=== PATIENT | female | born 1950 | race Caucasian/White ===

== ENCOUNTER → 2024-10-27 | Outpatient (CLI) | payer MEDICARE ==
--- NOTE | 2024-10-27 19:33 | CA ---
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 18 - 58 / 22 - 52 cm??? LA Volume Index 25.1 cm???/m??? 16 - 28 cm???/m??? DOPPLER AV Peak Velocity 203.5 cm/s AV Peak Gradient 16.6 mmHg TR Peak Velocity 216.2 cm/s TR Peak Gradient 18.7 mmHg FINDINGS Left Ventricle Left ventricular ejection fraction is estimated at 55 to 60%. Mild concentric left ventricular hypertrophy. Normal left ventricular systolic function with no obvious regional wall motion abnormalities. Left ventricular cavity size normal. Normal average global longitudinal strain of the left ventricle with a value of - 18 %. Right Ventricle Normal right ventricular size and function. Right ventricular systolic pressure within normal limits. Right Atrium Normal right atrial size. Interatrial septum highly mobile Left Atrium Normal left atrial size. Mitral Valve Structurally normal mitral valve. No mitral stenosis. Mild mitral regurgitation. Aortic Valve Trileaflet aortic valve. No aortic stenosis. No aortic regurgitation. Tricuspid Valve Structurally normal tricuspid valve. No tricuspid stenosis. Mild tricuspid regurgitation. Pulmonic Valve Structurally normal pulmonic valve. No pulmonic stenosis. No pulmonic regurgitation. Pericardium No pericardial effusion. Aorta Normal size aortic root and proximal ascending aorta. CONCLUSIONS 1. Normal left ventricular size and systolic function with average global longitudinal strain of -18% 2. Mild mitral and tricuspid regurgitation Previewed by: Dr. Joe Smith MD (Electronically Signed) Final Date: 27 October 2024 19:32
== END | disposition home or self-care (01) ==
LOC: RADECHMAIN 12:50
PROVIDERS: ATTEND Internal Medicine
DX: Z01.818 Encounter for other preprocedural examination (principal); I08.1 Rheumatic disorders of both mitral and tricuspid valves
CPT/HCPCS: 93306

== ENCOUNTER → 2024-10-29 | Outpatient (CLI) | payer MEDICARE ==
--- NOTE | 2024-10-29 16:54 | PE ---
EXAMINATION TYPE: PET CT fusion skull to thigh DATE OF EXAM: 10/29/2024 CLINICAL INDICATION:Female, 74 years old with history of C83.38 LYMPHOMA; TECHNIQUE: Following the intravenous administration of 9.16 mCi of F-18 FDG, whole body images are performed from the skull base to the midthigh. Images are reviewed on the computer in the coronal, a xial, and sagittal planes. Reconstructed rotating images are created on independent workstation and reviewed on the computer. A non-contrast CT is performed in conjunction with the PET scan. Glucose level 73 mg/dL CT DLP: 1143 mGycm, Automated exposure control for dose reduction was used. COMPARISON: None available FINDINGS: Mediastinal SUV mean is 2.7. Hepatic parenchyma SUV mean is 2.2. SKULL BASE AND NECK: Left supraclavicular mass with surrounding stranding measuring up to 3.8 cm. Demonstrates intense FDG activity with a maximum SUV of 29.1. Posterior just right of midline soft tissue nodule within the lower neck subcutaneous tissues measuri ng up to 1.0 cm with a maximum SUV of 16.5. CHEST, MEDIASTINUM, AND HILAR REGION: Multiple enlarged masses/lymph nodes with confluent appearance within the mediastinum with largest wi thin the prevascular space measuring up to 7.4 cm. Demonstrates a maximum SUV of 40.6. Focal intense radiotracer activity within the superior vena cava with a maximum SUV of 30.2. Medial right breast 2.4 cm lobulated FDG avid mass with a max SUV of 25.8. Superior left breast 1.4 c m FDG avid mass with a maximum SUV of 11.5. Few scattered subcutaneous tissue implants with example including a left upper extremity 1.8 cm FDG a vid nodule within the subcutaneous tissues overlying the left deltoid muscle with a maximum SUV of 18 .8. ABDOMEN AND PELVIS: Left periaortic enlarged lymph node measuring up to 3.5 cm at the aortic hiatus with a maximum SUV of 6.4. Additional prominent and enlarged periaortic lymph nodes with exam including a left periaortic lymph node measuring up to 1.7 cm (series 4, image 170). Demonstrates a maximum SUV of 2.2. Right anterior mid abdominal wall just right of midline subcutaneous 1.4 cm nodule with FDG activity. Demonstrates a maximum SUV of 17.9. Additional few scattered left lower back subcutaneous tissue imp lants. FDG avid 4.7 cm mass within the left ischiorectal fossa with a max SUV of 38.7. Enlarged uterus with intense FDG activity measuring up to 7.4 cm. Demonstrates a max SUV of 35.8. MUSCULOSKELETAL STRUCTURES: Right lumbar back paravertebral musculature focal region of radiotracer uptake with a maximum SUV of 19.3. Right parasacral musculature focal region radiotracer uptake with a maximum SUV of 30.2. OTHER CT: Minimal mucosal thickening in the inferior bilateral maxillary sinuses. Multilevel degenera tive changes of the spine. Subcentimeter hypodense nodule within the right thyroid lobe. Small perica rdial effusion. Small to moderate size right pleural effusion with small left pleural effusion. There is associated atelectatic change of the lung bases. Moderate-sized hiatal hernia. Sigmoid diverticul osis without evidence for acute diverticulitis. IMPRESSION: Multiple FDG avid lesions above and below the diaphragm corresponding to reported lymphoma. These inc lude mediastinal and left supraclavicular adenopathy, SVC mass, several scattered subcutaneous tissue /muscular metastatic implants including both breasts, left ischiorectal fossa metastatic mass, retrop eritoneal adenopathy, and uterine mass. [facility], , 10/29/2024 4:51 PM
== END | disposition home or self-care (01) ==
LOC: RADPETMAIN 14:46
PROVIDERS: ATTEND Internal Medicine
DX: C83.38 Diffuse large B-cell lymphoma, lymph nodes of multiple sites (principal); N63.20 Unspecified lump in the left breast, unspecified quadrant; N63.10 Unspecified lump in the right breast, unspecified quadrant; R59.0 Localized enlarged lymph nodes; Z98.82 Breast implant status
CPT/HCPCS: 78815; A9552

== ENCOUNTER → 2024-11-02 | Day surgery (SDC) | payer MEDICARE ==
[~2024-11-02] MED LIST: ESMOLOL 100 MG/10 ML VIAL ONE; HYDROmorphone 0.5 MG/0.5 ML SYRINGE IVP PRN; LIDOCAINE 1% (10MG/ML) FOR IV START INTRADERMA PRN; LIDOCAINE 1% INJ 10MG/ML (20 ML MDV) ONE; MIDAZOLAM 2 MG/2 ML VIAL IV PRN; MIDAZOLAM 2 MG/2 ML VIAL ONE; PROPOFOL 10 MG/ML 20 ML VIAL IV ONE; SUCCINYLCHOLINE CHLORIDE 200 MG/10 ML VIAL IV ONE; fentaNYL (PF) 50 MCG/ML 2 ML AMP IVP PRN; fentaNYL (PF) 50 MCG/ML 2 ML AMP ONE
[2024-11-02] MEDS: IV FLUID CONTINUATION 1,000 ML IV ONE (13:00)
[2024-11-02] MEDS: DEXAMETHASONE SOD PHOSPHATE 4 MG/ML 1 ML VIAL IV ONE (13:20)
[2024-11-02] MEDS: ONDANSETRON 4 MG/2 ML VIAL IVP ONE (13:20)
[2024-11-02] MEDS: LACTATED RINGERS 1,000 ML IV SCH (13:21)
[2024-11-02] MEDS: SODIUM CHLORIDE 0.9% 100 ML with ceFAZolin 2,000 MG IV ONE (14:12)
[2024-11-02] MEDS: BUPIVACAINE (PF) 0.25% 30 ML VIAL SQ ONE ×2 (14:29)
[2024-11-02 16:06] VITALS: TEMP 97
--- NOTE | 2024-11-02 16:10 | XR ---
EXAMINATION TYPE: XR chest 1V portable DATE OF EXAM: 11/02/2024 4:03 PM COMPARISON: 10/29/2024 PET/CT CLINICAL INDICATION: Female, 74 years old with history of Aborted Mediport, TECHNIQUE: XR chest 1V portable view(s) obtained. FINDINGS: The heart size is normal. The pulmonary vasculature is normal. Minimal left pleural effusion is present. Small right pleural effusion is present. There is fullness at the aortic arch level. Follow-up recommended. Superior mediastinal mass correlat es with the mass on PET/CT. No pneumothorax is evident. IMPRESSION: 1. No pneumothorax post procedure. 2. Small right and minimal left pleural effusions. 3. Fullness to the mediastinum correlates with the lymphadenopathy on the PET exam. [facility], , 11/02/2024 4:08 PM
--- NOTE | 2024-11-02 16:27 | FL ---
Fluoroscopy INDICATION: Pain FINDINGS: Fluoroscopy time: 14 seconds. Total dose area product (DAP) in uGy*m?, mGy*cm? (or similar): 0.0133 Images obtained: 0. Images document the procedure. IMPRESSION: 1. Documentation of fluoroscopy. [facility], , 11/02/2024 4:24 PM
[2024-11-02 17:43] VITALS: BP 133/80; PULSE 110; RESP 18
--- NOTE | 2024-11-07 18:12 | P.OP ---
Date of Procedure: 11/02/24 Preoperative Diagnosis: Lymphoma Postoperative Diagnosis: Lymphoma Mediastinal mass Procedure(s) Performed: Mediport placement attempt with fluoroscopy Anesthesia: MAC Surgeon: Сергей Mullins Pathology: none sent Condition: stable Disposition: same day Indications for Procedure: 74-year-old female presents for Mediport placement. She has new onset diagnosis of lymphoma with mediastinal mass. Plan is for induction of chemotherapy. Risks, benefits and alternatives were provided to the patient including risks of bleeding, infection and port complications. Operative Findings: Appropriate flush, however unable to withdraw from port site after multiple attempts Bleeding in LMA Description of Procedure: Patient was brought to the operating suite and placed in supine position on the operating table. Sedation was provided by anesthesia and the patient underwent endotracheal intubation. Patient was then prepped and draped in regular sterile fashion. Local anesthetic was administered and the right subclavian vein was entered on first attempt. Nonpulsatile dark blood was withdrawn. Guidewire was then placed and location was confirmed under fluoroscopic guidance. At this point local anesthetic was administered to create the pocket for the port. Incision was made and dissection was carried to the prepectoralis fascia. Dissection was carried to free up space for the port. At this point a small incision was made at the guidewire insertion site and a tunnel was created between this guidewire site and the pocket and catheter was placed. Dilator sheath was then placed over the guidewire under fluoroscopic guidance and catheter was then placed. Catheter was noted to be in appropriate position and was connected to the port and port was placed in the pocket. Appropriate flush was noted, however withdrawal was unable to be performed. Multiple attempts were made at attempting withdrawal without success. Guidewire exchange was then performed of the catheter and reattached to the port. Similarly, appropriate flush was performed without ability to withdraw. At this point, decision was made to attempt right IJ approach. On turning the patient's head, anesthesia did notify me that blood was noted in the LMA and this was removed and suctioned with no evidence of active bleeding. Endotracheal intubation was performed with deep suction without any significant active bleeding noted. Decision was made that as the patient had unable to withdraw properly from the port and concern for tracheal bleeding, procedure was aborted. Chest x-ray to be performed in postanesthesia care unit. Patient was awakened in the operating suite and taken to postanesthesia care unit in stable condition. Case was discussed with the patient's family and oncologist afterwards with plan for PICC line placement as withdrawal is likely unable to be performed secondary to mediastinal mass compression..
== END | disposition home or self-care (01) ==
LOC: OR 12:46
PROVIDERS: ATTEND Surgery
DX: C85.90 Non-Hodgkin lymphoma, unspecified, unspecified site (principal); J90 Pleural effusion, not elsewhere classified
CPT/HCPCS: 36561; 77001; 71045; J2250; J0330; J1100; J2405; J0690; J2003; J3010; J2704; J0665; J1805

== ENCOUNTER 2024-11-05 16:32 | Emergency (ER) | payer MEDICARE ==
[2024-11-05 17:24] VITALS: TEMP 98.4
--- NOTE | 2024-11-05 20:14 | ED ---
General Adult HPI - General Chief complaint: Recheck/Abnormal Lab/Rx Stated complaint: Right arm injury Time Seen by Provider: 11/05/24 18:03 Source: patient Mode of arrival: ambulatory Limitations: no limitations - History of Present Illness Initial comments: 74-year-old female presenting with chief complaint of bleeding from her PICC line. Patient had PICC line inserted earlier today by Dr. Zavala, she will be receiving chemo through her PICC line. States that when she woke up from a nap today there was blood on the bandage and she was told to come here for evaluation and dressing change. Patient reports that she is not having continued bleeding from the looks of it. Pain is controlled. No fever. No injury. - Related Data Home Medications Medication Instructions Recorded Confirmed Apixaban [Eliquis] 2.5 mg PO BID 10/29/24 11/04/24 Allergies Allergy/AdvReac Type Severity Reaction Status Date / Time No Known Allergies Allergy Verified 11/05/24 17:24 Review of Systems ROS Statement: Those systems with pertinent positive or pertinent negative responses have been documented in the HPI. ROS Other: All systems not noted in ROS Statement are negative. 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 History of Any Multi-Drug Resistant Organisms: None Reported Additional Past Surgical History / Comment(s): aborted mediported 11-02-24,CT-guided biopsy @ [facility] mediastinal mass 10/19/24 Past Anesthesia/Blood Transfusion Reactions: No Reported Reaction Smoking Status: Former smoker Past Alcohol Use History: None Reported Past Drug Use History: None Reported - Past Family History Daughter(s) Family Medical History: Cancer Additional Family Medical History / Comment(s): melanoma Mother Family Medical History: Coronary Artery Disease (CAD) Additional Family Medical History / Comment(s): CABG Father Family Medical History: Coronary Artery Disease (CAD) Additional Family Medical History / Comment(s): CABG General Exam Limitations: no limitations General appearance: alert, in no apparent distress Head exam: Present: atraumatic, normocephalic, normal inspection Eye exam: Present: normal appearance, EOMI Neck exam: Present: normal inspection. Absent: meningismus Respiratory exam: Present: normal lung sounds bilaterally. Absent: respiratory distress, wheezes, rales, rhonchi, stridor Cardiovascular Exam: Present: normal rhythm, tachycardia, normal heart sounds. Absent: systolic murmur, diastolic murmur, rubs, gallop, clicks Extremities exam: Present: normal inspection Neurological exam: Present: alert, oriented X3 Psychiatric exam: Present: normal affect, normal mood Course Vital Signs 11/05/24 11/05/24 17:21 20:20 Temperature 98.4 F 98.4 F Pulse Rate 123 H 101 H Respiratory 20 16 Rate Blood Pressure 136/77 133/84 O2 Sat by Pulse 94 L 95 Oximetry Medical Decision Making - Medical Decision Making Was pt. sent in by a medical professional or institution (, PA, SANDING MACHINE TENDER, urgent care, hospital, or [facility]...) When possible be specific @ -No Did you speak to anyone other than the patient for history (EMS, parent, family, police, friend...)? What history was obtained from this source @ -No Did you review nursing and triage notes (agree or disagree)? Why? @ -I reviewed and agree with nursing and triage notes Were old charts reviewed (outside hosp., previous admission, EMS record, old EKG, old radiological studies, urgent care reports/EKG's, [facility] records)? Report findings @ -No old charts were reviewed Differential Diagnosis (chest pain, altered mental status, abdominal pain women, abdominal pain men, vaginal bleeding, weakness, fever, dyspnea, syncope, headache, dizziness, GI bleed, back pain, seizure, CVA, palpatations, mental health, musculoskeletal)? @ -Differential includes expected postoperative bleeding, postop hemorrhage, not an all-inclusive list EKG interpreted by me (3pts min.). @ -EKG shows sinus tachycardia ventricular rate 108. MI interval 159. QRS 94. QT 321. QTc 385 X-rays interpreted by me (1pt min.). @ -None done CT interpreted by me (1pt min.). @ -None done U/S interpreted by me (1pt. min.). @ -None done What testing was considered but not performed or refused? (CT, X-rays, U/S, labs)? Why? @ -None What meds were considered but not given or refused? Why? @ -None Did you discuss the management of the patient with other professionals (professionals i.e. , PA, SANDING MACHINE TENDER, lab, RT, psych nurse, family welfare social work professor, bottom cager, teacher, railroad police officer, complex case manager)? Give summary @ -No Was smoking cessation discussed for >3mins.? @ -No Was critical care preformed (if so, how long)? @ -No Were there social determinants of health that impacted care today? How? (Homelessness, low income, unemployed, alcoholism, drug addiction, transportation, low edu. Level, literacy, decrease access to med. care, fpc, rehab)? @ -No Was there de-escalation of care discussed even if they declined (Discuss DNR or withdrawal of care, Hospice)? DNR status @ -No What co-morbidities impacted this encounter? (DM, HTN, Smoking, COPD, CAD, Cancer, CVA, ARF, Chemo, Hep., AIDS, mental health diagnosis, sleep apnea, morbid obesity)? @ -None Was patient admitted / discharged? Hospital course, mention meds given and route, prescriptions, significant lab abnormalities, going to OR and other pertinent info. @ -74-year-old female presenting with chief complaint of bleeding from her PICC line site, she had her PICC line inserted today. Patient's nurse remove the bandage and inform me that there is no active bleeding, there was some mild dried blood on the bandage. New sterile dressing was applied. Patient was initially tachycardic upon arrival. EKG shows sinus tachycardia. Patient is having no chest pain and no palpitations. She is having no other symptoms and feels well at this time. Educated on today's findings. Follow-up with PCP. Report back to ER with any new or worsening symptoms. Discussed return parameters and answered all questions. Patient conveyed verbal understanding and agreed to the plan. I discussed this case in detail with my attending Dr. Rojas Undiagnosed new problem with uncertain prognosis? @ -No Drug Therapy requiring intensive monitoring for toxicity (Heparin, Nitro, Insulin, Cardizem)? @ -No Were any procedures done? @ -No Diagnosis/symptom? @ -Dressing change Acute, or Chronic, or Acute on Chronic? @ -Acute Uncomplicated (without systemic symptoms) or Complicated (systemic symptoms)? @ -Uncomplicated Side effects of treatment? @ -No Exacerbation, Progression, or Severe Exacerbation? @ -No Poses a threat to life or bodily function? How? (Chest pain, USA, MT, pneumonia, PE, COPD, DKA, ARF, appy, cholecystitis, CVA, Diverticulitis, Homicidal, Suicidal, threat to staff... and all critical care pts) @ -Unlikely Disposition Clinical Impression: Dressing change Disposition: HOME SELF-CARE Condition: Good Additional Instructions: Follow-up with your surgeon. Report back to ER with any new or worsening symptoms. Is patient prescribed a controlled substance at d/c from ED?: No Referrals: Florecita Reid MD [Primary Care Provider] - 1-2 days Time of Disposition: 20:14
[2024-11-05 20:22] VITALS: BP 133/84; PULSE 101; RESP 16
== END 2024-11-05 20:20 | disposition home or self-care (01) ==
LOC: EC 16:32
DX: Z45.2 Encounter for adjustment and management of vascular access device (principal); Z87.891 Personal history of nicotine dependence
CPT/HCPCS: 93005; 99283

== ENCOUNTER → 2024-11-05 | Day surgery (SDC) | payer MEDICARE ==
[2024-11-04 09:46] VITALS: BMI 26.2
--- NOTE | 2024-11-05 12:19 | IR ---
EXAMINATION TYPE: IR cvc insert >=5 years DATE OF EXAM: 11/05/2024 FLUOROSCOPY Chemo, 4F 41 rt basilic PICC line, 7.9m/10.9DAP 400 images are submitted. [facility], , 11/05/2024 12:16 PM
--- NOTE | 2024-11-05 15:55 | P.OP ---
Date of Procedure: 11/05/24 Preoperative Diagnosis: Non-Hodgkin's lymphoma with need for long-term IV access for chemotherapeutic purposes. 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 Procedure(s) Performed: 1: Ultrasound-guided cannulation right cephalic vein. 2: Superior venacavogram. 3: Placement of peripherally inserted catheter under fluoroscopic guidance. Anesthesia: local (1% Xylocaine at the puncture site.) Surgeon: Florencio Slater Estimated Blood Loss (ml): 10 IV fluids (ml): 0 Urine output (ml): 0 Pathology: none sent Condition: stable Disposition: no change Indications for Procedure: Patient is a 74-year-old female who was diagnosed with non-Hodgkin's lymphoma. Previously an attempt had been made of a subcutaneous port placement for chemotherapeutic purposes. This was unable to be accomplished in patient was referred for placement of a peripherally inserted central venous catheter for chemotherapeutic purposes. The procedure, risk and benefits were discussed with the patient. All questions were answered and consent form was signed. Description of Procedure: Patient was laid supine in in the cardiac Auto Travel Counselor. The patient's right upper extremity was sterilely prepped and draped in usual manner. Ultrasound was utilized to identify the cephalic vein on the right at the mid humeral level. The vein was normally compressible and free of visible thrombus. 1% Xylocaine was utilized for local anesthesia the tissues overlying this segment of the vein and through this anesthetized area with the aid of ultrasound a micropuncture needle was utilized to cannulate the vein. Once cannulated soft-tipped guidewire was advanced into the vein. The needle was withdrawn and a micropuncture sheath and dilator were advanced over the guidewire. Guidewire was then advanced toward the central venous system. Difficulty was experienced obtaining access to the central venous system. Eventually a 5 Danish sheath was placed in the cephalic vein and utilizing guidewire and catheter combination and after central venogram was performed guidewire was eventually advanced into the right ventricle. Venography demonstrated large collaterals surrounding the central venous system with the innominate vein occlusion noted. The 5 Danish sheath was then removed from the guidewire after the PICC guidewire had been advanced through the catheter into the right ventricle. The 5 Danish sheath was then exchanged for the PICC sheath and dilator. Dilator was withdrawn and the PIC line was advanced into the central venous system after being measured to appropriate length of 41 cm. The catheter was cut to the 41 cm henny and positioned within the superior vena cava. Follow-up venography demonstrated catheter to be in proper position with no evidence of complication. The sheath was peeled away. The catheter was secured to the skin with nylon suture. Appropriate dressings were applied. Patient tolerated procedure well and was returned to her room in satisfactory and stable condition. Total fluoroscopy time: 7.9 minutes. Total contrast volume utilized: 20 mL [id number].
== END ==
LOC: CATHCVL 06:20
PROVIDERS: ATTEND Internal Medicine
DX: C83.398 Diffuse large B-cell lymphoma of other extranodal and solid organ sites (principal); I82.601 Acute embolism and thrombosis of unspecified veins of right upper extremity; Z79.01 Long term (current) use of anticoagulants; Z87.891 Personal history of nicotine dependence
CPT/HCPCS: 75827 ×2; 36010; 36573; C1751 ×2; C1769 ×3; C1894; C1887